=== PATIENT | male | born 1970 | race Two or more races ===

== ENCOUNTER 2016-03-22 05:20 | Inpatient (IN) | payer OTHER ==
[~2016-03-22] VITALS: Ht 162.6 cm; Wt 103.7 kg
[2016-03-22] VITALS (35 sets, daily range): BP systolic 104–152; BP diastolic 56–101; PULSE 60–102; RESP 8–24; Ht 162.6 cm; Wt 103.7 kg
[2016-03-22] MEDS: PAIN COCKTAIL-CEFUROXIME IRR SCH ×14 (05:00→08:54)
[~2016-03-22 05:20] MED LIST: 3N1 COMMODE MC; ALLO100T PO; ASPI325T32 PO; ATOR20TA38 PO; BENA20TA48 PO; BUPIVACAINE LIPOSOME/PF 266 MG/20 ML VIAL INFIL SCH; CEFAZOLIN 2GM/50 ML (PMX) 50 ML X1 BEFORE INCISION IVPB ONE; CELECOXIB 400 MG PO X1 DOSE PO ONE; CPM MC; EXPAREL NOTE (BUPIVICAINE LIPOSOMAL) XX SCH; HYDR-3025 PO; METO25TA7 PO; PREGABALIN 300 MG PO X1 PO ONE; SOD CHLORIDE 0.9% IV ONE; SOD CHLORIDE 0.9% IVPB SCH; TRANEXAMIC ACID IV ONE; TRANEXAMIC ACID IVPB SCH; WALK1EAC23 MC; oxyCODONE (CR) 10 MG TAB [oxyCONTIN] X1 DOSE PO ONE; traMADOL 50 MG TAB X 1 DOSE PO ONE
[2016-03-22] MEDS ORDERED: METO-448 PO (06:19)
[2016-03-22] MEDS ORDERED: BACITRACIN 50000 UNITS INJ ONE (06:34)
[2016-03-22] MEDS ORDERED: FENTAnyl 50 MCG/ML VIAL ONE (06:50)
[2016-03-22] MEDS ORDERED: DEXAMETHASONE 4 MG/ML 1 ML INJ ONE (06:52)
[2016-03-22] MEDS ORDERED: SODIUM CL BACTERIOSTATIC 30 ML INJ ONE (06:52)
[2016-03-22] MEDS ORDERED: VANCOMYCIN 1 GM INJ ONE (06:53)
[2016-03-22] MEDS ORDERED: POLYMYXIN B 500000 UNIT INJ ONE (06:53)
[2016-03-22] MEDS ORDERED: PROPOFOL 100 ML ONE (06:54)
[2016-03-22] MEDS ORDERED: MIDAZOLAM 1 MG/ML 2 ML INJ ONE (06:59)
[2016-03-22] MEDS ORDERED: DIPHENHYDRAMINE 50 MG INJ IV PRN ×2 (08:30)
[2016-03-22] MEDS ORDERED: LABETALOL HCL 20MG INJ IV PRN (08:30)
[2016-03-22] MEDS ORDERED: MEPERIDINE 25 MG INJ IV PRN (08:30)
[2016-03-22] MEDS ORDERED: HYDROmorphONE (0.2 MG/ML) 10ML SYG IV PRN ×3 (08:30)
[2016-03-22] MEDS ORDERED: HYDROmorphONE 1 MG/ML SYG IV PRN ×3 (08:30→10:30)
[2016-03-22] MEDS ORDERED: METOCLOPRAMIDE 10 MG INJ IV PRN (08:30)
[2016-03-22] MEDS ORDERED: NALOXONE (0.4 MG/ML) INJ IV PRN (08:30)
[2016-03-22] MEDS ORDERED: ONDANSETRON 4 MG INJ IV PRN ×3 (08:30→10:30)
[2016-03-22] MEDS ORDERED: FENTAnyl 50 MCG/ML VIAL IV PRN ×3 (08:30)
[2016-03-22] MEDS ORDERED: NEOSTIGMINE 3 MG/3 ML SYRINGE ONE (08:38)
[2016-03-22] MEDS ORDERED: PROPOFOL 20 ML ONE (08:38)
[2016-03-22] MEDS ORDERED: SUCCINYLCHOLINE CHLORIDE 100 MG/5 ML SYG IV ONE (08:38)
[2016-03-22] MEDS ORDERED: CEFAZOLIN 1 GM INJ ONE (08:39)
[2016-03-22] MEDS ORDERED: ONDANSETRON 4 MG INJ ONE (08:39)
[2016-03-22] MEDS ORDERED: LIDOCAINE 2% (SDV) 5 ML INJ ONE (08:39)
[2016-03-22] MEDS ORDERED: ROCURONIUM 50 MG INJ ONE (08:39)
[2016-03-22] MEDS ORDERED: METOCLOPRAMIDE 10 MG INJ ONE (08:39)
[2016-03-22] MEDS ORDERED: GLYCOPYRROLATE 1 MG INJ ONE (08:39)
[2016-03-22] MEDS: LACTATED RINGER'S 1,000 ML IV SCH ×5 (10:02→23:28)
--- NOTE | 2016-03-22 10:13 | PN ---
Date/Time of Note Date/Time of Note DATE: 03/22/16 TIME: 10:09 Assessment/Plan Lines/Catheters IV Catheter Type (from Nrsg): Peripheral IV Assessment/Plan Assessment/Plan Stable in PACU, s/p right TKA -cont abx -pain meds -ASA/SCDs -OOB with PT -monitor drain -check AM labs -d/c montero in AM XR of the right knee is pending at this time Subjective 24 Hr Interval Summary Doing well in PACU. Pain minimal. Moving all extremities Exam/Review of Systems Vital Signs Vitals Vital Signs Date Time Temp Pulse Resp B/P Pulse Ox O2 Delivery O2 Flow Rate FiO2 03/22/16 06:12 98.1 60 18 142/101 98 Room Air Exam Free Text/Dictation Dressing dry Incision clean, dry, and intact without redness or drainage Thigh soft 5/5 Quadriceps, Tibialis Anterior, EHL, Gastroc, Soleus, Peroneals Normal sensation Palpable DT/PT, CR <2 sec No distal edema ROSALINDA STEWART PA-C Mar 22, 2016 10:13
--- NOTE | 2016-03-22 10:14 | OPPN ---
Date/Time of Note Date/Time of Note DATE: 03/22/16 TIME: 10:10 Operative/Procedure Note Dictation # [id number] Pre-Operative Diagnosis Right Knee OA Post-Operative Diagnosis Same Procedure Right TKA Surgeon: KAM DIGGS MD Record Label Internship: ROSALINDA STEWART PA-C Anesthesiologist: JOHN HALL Findings Severe OA Blood Usage/Administration None Implants/Grafts Depuy Attune TKA Estimated blood loss: 50 - 100 ml's Drains Hemovac x 1 Specimens Bone and soft tissue Complications: None Anesthesia type: spinal KAM DIGGS MD Mar 22, 2016 10:14
[2016-03-22 10:25] LABS: HEMATOCRIT 44.8 % (42.0-52.0); HEMOGLOBIN 14.9 g/dl (14.0-18.0)
[2016-03-22] MEDS ORDERED: DIPHENHYDRAMINE 25 MG CAP PO PRN (10:30)
[2016-03-22] MEDS: KETOROLAC 15 MG INJ IV SCH ×2 (10:30→18:20)
[2016-03-22] MEDS ORDERED: oxyCODONE 5 MG TAB PO PRN ×2 (10:30)
[2016-03-22] MEDS ORDERED: MAGNESIUM HYDROXIDE 30ML CUP PO PRN (10:30)
[2016-03-22] MEDS ORDERED: NACL 0.9% 3 ML SYG IV SCH (10:30)
[2016-03-22] MEDS ORDERED: BISACODYL 10 MG SUPP PR PRN (10:30)
[2016-03-22] MEDS ORDERED: NA PHOSPHATE/BIPHOS 133 ML ENEMA PR PRN (10:30)
[2016-03-22] MEDS ORDERED: ASPIRIN (EC) 325 MG TAB PO ONE (10:30)
[2016-03-22 10:45] LABS: CALCIUM 8.3 mg/dl (8.4-10.2); CREATININE 0.91 mg/dl (0.61-1.24); POTASSIUM 4.4 mmol/L (3.5-5.1)
[2016-03-22] MEDS: CEFAZOLIN 2 GM/50 ML (PMX) 50 ML IVPB SCH ×2 (10:53→18:19)
--- NOTE | 2016-03-22 11:20 | OPR ---
DATE OF OPERATION: 03/22/2016 PREOPERATIVE DIAGNOSIS: Right knee osteoarthritis. POSTOPERATIVE DIAGNOSIS: Right knee osteoarthritis. OPERATION PERFORMED: Right total knee arthroplasty. SURGEON: Kam Brandt MD MOLD CAPPER: CLAUDETTE Guzman COMPONENTS USED: DePuy Attune size 6 femoral component, size 7 tibial baseplate, 6 mm polyethylene insert, 38 patellar button. ANESTHESIA: Spinal plus general endotracheal intubation plus periarticular injection. ANESTHESIOLOGIST: Dr. Alegria. TOURNIQUET TIME: 67 minutes. ESTIMATED BLOOD LOSS: 50 mL. INTRAVENOUS FLUIDS: 1500 mL crystalloid. SPECIMENS: Bone and soft tissue. DRAINS: Hemovac x1. COMPLICATIONS: None. DISPOSITION: Patient tolerated the procedure well and was taken to the recovery room in stable cond ition. INDICATIONS: The patient is a 45-year-old gentleman who has had progressive worsening pain in the r ight knee with radiographic evidence of severe osteoarthritis. He has failed nonsurgical means of t reatment to control his pain including activity modifications, pain medications, intra-articular inj ections and ambulatory assist devices. Despite these measures, he has had worsening pain. I felt the patient would benefit from a total knee arthroplasty. The risks, benefits, and alternatives of the procedure were explained in detail to the patient. I ex plained the risks of the surgery to include but not be limited to, bleeding and possible need for bl ood transfusion; infection; pain; stiffness; neurovascular injury with possible numbness, weakness, and/or paralysis anywhere from the knee down to the toes; fracture; instability; dislocation; wear a nd/or loosening of the prosthesis and possible need for future revision; blood clots; pulmonary embo lism; and anesthetic complications such as heart attack, stroke, GI bleed, pneumonia, and/or . Ample time was allowed for the patient to ask questions, all of which were addressed and answered. T he patient understood the risks involved and wished to proceed. Informed consent was signed prior to the procedure. PROCEDURE: The patient's right knee was initialed with a marking pen in the preoperative area to id entify the correct operative site. The patient was brought to the operating room and transferred fro [facility] to the operating table where a spinal anesthetic was administered. The patient was then anesthetized and intubated. A Reyes catheter was placed. A timeout was performed to confir m that the right leg was the correct operative site. The patient was given 2 g of Ancef within one h our prior to the procedure. A tourniquet was placed on the operative proximal thigh. The operative k nee and lower extremity were prepped and draped in the usual sterile fashion. The operative lower ex tremity was elevated and exsanguinated with an Esmarch tourniquet. The proximal thigh tourniquet was inflated to 300 mmHg. The knee was flexed. A midline incision was made and carried down through the subcutaneous tissue an d fat with sharp dissection. Limited medial and lateral flaps were raised. A : median parapatellar arthrotomy approach was performed. Synovial fluid was normal in color and consistency. The patella w as everted and the knee flexed. There were severe tricompartmental osteoarthritic changes noted. A m edial release was performed at the joint line to the midcoronal plane. The ACL and PCL and remnants of the menisci were excised. The stepped drill was used to open up the femoral canal which was irrig ated and sucked dry. The intramedullary guide ivory was passed up the femur, and the distal cutting bl ock was pinned into place for a 6 degree valgus cut, taking 10 mm of bone off distally. The oscillat ing saw was used to make the cut. The tibia was subluxed anteriorly. The tibial cutoff jig was placed over the center of the talus dis tally and over the junction of the medial and middle third of the tibial tubercle proximally. The gu rosario was pinned into place and the oscillating saw was used to make the cut. The tibia was sized. The extension gap was checked and accommodated a 6 mm spacer block with the knee in full extension. The re was no varus or valgus instability. At this point, the femur was sized with the posterior referencing guide. Two holes were drilled in 3 degrees of external rotation. The two holes were in line with the transepicondylar axis, perpendicu lar to Max's line, and in line with the tibial cutoff jig brought up with the knee flexed 90 d egrees and tensed with 2 lamina spreaders, suggesting the femoral rotation was correct. The four-in- one cutting block was pinned into place. The anterior and posterior cuts and chamfer cuts were made with the oscillating saw. The flexion gap was checked and accommodated the 6 mm spacer block at 90 d egrees. There was no varus or valgus instability, suggesting the flexion and extension gaps were now equal. The central box was cut out on the femur. The tibia was drilled and punched in proper rotation. Tria l components were placed into position with a trial insert. The patella was cut from 24 mm down to 1 4 mm and sized. Three holes were drilled and the trial button placed in position. With all the trial s now in place, the knee was taken through range of motion and came to full extension as evidenced b y the fact that with the foot on my abdomen and axial loading, there was no tendency for the knee to flex. The knee was able to be flexed to 125 degrees with good patellar tracking with no lateral til t or subluxation. At this point, I was satisfied with the overall range of motion, stability, and pa tellar tracking. The trials were removed. The real components were opened. Two bags of cement were mixed, one with an d one without premixed antibiotic. The knee was irrigated with antibiotic saline and sucked dry. Onc e the cement was in a doughy stage, the real components were cemented into place. The knee was held in full extension, and the patellar component was held with a patellar clamp. All excess cement was removed with curettes. As the cement was hardening, the synovial/capsular layer was infiltrated with a mixture of 150 mg of 0.5% Bupivacaine, 8 mg of Duramorph, 300 mcg of epinephrine, 30 mg of [place] l, 100 mcg of clonidine, 750 mg of cefuroxime and 86 mL of normal saline, followed by an injection o f 266 mg of liposomal Bupivacaine. A Hemovac drain was placed in the deep portion of the wound and brought out the anterolateral thigh. Once the cement was completely hardened, the trial liner was removed, and the real insert was opene d. The tourniquet was let down, and there was good hemostasis. The knee was then irrigated with a mi xture of betadine/saline and then antibiotic saline with pulsatile lavage. The real insert was impac nasir into the tibia and reduced onto to the femur. The arthrotomy was closed with a few interrupted #1 Ethibond in a [id number] fashion, and then closed in a watertight fashion with a running #2 Stratafix suture. Knee flexion was checked against gravity and came to 125 degrees. The subcutaneous layer was irrigated and closed with 2-0 Statafix, and then 3-0 Statafix and then Prineo Dermabond on the skin. The wound was covered with an occlusive dressing, and secured with cast padding and a bias dressing. The drain was secured with 3-0 nylon. The sponge and needle counts were correct at the end of the case. The patient was then awakened, ext ubated, and taken to the recovery room in stable condition. Dictated By: KAM MARIANO/NTS Conf#: [id number] DID#: [id number]
--- NOTE | 2016-03-22 11:28 | RADRPT ---
PROCEDURE: XR Knee. CLINICAL INDICATION: Postoperative total knee replacement. TECHNIQUE: Three views of the right knee are available for review. COMPARISON: 03/06/2016. FINDINGS: Since the prior examination, and the patient has undergone a posterior stabilized total knee replace ment. There is an overall appropriate appearance. The prosthesis is in good position and alignment . No bone destructive or erosive changes are seen. No evidence for fracture. There are postoperat miguel changes of soft tissue swelling and air which are expected findings. There is a drain in place. IMPRESSION: 1. Appropriate appearance to posterior stabilized total knee replacement. 2. No acute fracture or dislocation is seen. RPTAT: XX .Naseem Bustamante MD, Date Time Electronically viewed and signed by .Naseem Bustamante MD, on 03/22/2016 11:28 .T/
[2016-03-22] MEDS: traMADol 50 MG TAB PO SCH ×3 (12:53→23:29)
[2016-03-22] MEDS: ACETAMINOPHEN 1000MG/100ML IV 100 ML IVPB SCH ×3 (12:54→23:28)
[2016-03-22 14:06] LABS: ADD UMIC YES; URINE BILIRUBIN (Dip) NEGATIVE (NEGATIVE); URINE BLOOD (Dip) TRACE (NEGATIVE); URINE COLOR LT. YELLOW (YELLOW); URINE GLUCOSE (Dip) NEGATIVE (NEGATIVE); URINE KETONES (Dip) NEGATIVE (NEGATIVE); URINE LEUKOCYTE ESTERASE (Dip) NEGATIVE (NEGATIVE); URINE NITRITE (Dip) NEGATIVE (NEGATIVE); URINE TOTAL PROTEIN (Dip) NEGATIVE (NEGATIVE); URINE UROBILINOGEN (Dip) 0.2 E.U./dL (0.1-1.0)
[2016-03-22 14:15] LABS: URINE RBCS 0-2 /HPF (0)
--- NOTE | 2016-03-22 14:21 | CONS ---
DATE OF ADMISSION: 03/22/2016 DATE OF CONSULTATION: 03/22/2016 PHYSICIAN REQUESTING CONSULT: Dr. Kam Diggs. REASON FOR CONSULTATION: Medical management postoperatively. HISTORY OF PRESENT ILLNESS: This is a very pleasant 45-year-old gentleman with past medical history of hypertension, diverticulitis, right knee osteoarthritis, who has been having progressively worse jasmin pain in his right knee with radiographic evidence of severe osteoarthritis. He has failed nons urgical means of treatment to control his pain including activity modification, pain medication, int raocular injection ____ assist device. Despite these measures, he has been having worsening of the pain. The patient was seen and evaluated by orthopedic surgeon and after discussing the mode of oneil atment he agreed to proceed with surgical intervention. Therefore, today 03/22/2016 after signing c onsent, the patient was taken to OR for right total knee arthroplasty, which he tolerated the proced ure well and was taken to recovery room. Medical team was consulted. Patient at this time denies a ny chest pain, shortness of breath, nausea, vomiting, diarrhea. No headache, dizziness, lightheaded ness. No change in visual acuity, diplopia, photophobia. No abdominal pain. No dysuria, hematuria , urgency, incontinence or any other discomfort. At this time, the patient does not have any compla int of having any pain. PAST MEDICAL AND SURGICAL HISTORY: 1. Hypertension. 2. Diverticulitis SURGICAL HISTORY: Colon resection. MEDICATIONS: 1. [place]. 2. Allopurinol. 3. Aspirin. 4. Lipitor. 5. Benazepril 6. Metoprolol. ALLERGIES: NO KNOWN DRUG ALLERGIES. FAMILY HISTORY: Mother had COPD. Father had coronary artery disease. SOCIAL HISTORY: Negative x3 for smoking, alcohol, illicit drugs. REVIEW OF SYSTEMS: As above per HPI, otherwise 12 review of systems were found negative. PHYSICAL EXAMINATION: VITAL SIGNS: Temperature 98.7, pulse 74, respiration 18, blood pressure 110/60, oxygen 99% on room air. GENERAL APPEARANCE: The patient is lying in bed comfortably without any distress. He is awake, raven rt, oriented. He is able to answer my questions properly. Body habitus moderately overweight, a BM I of 39.2. EYES AND ENT: Conjunctivae and lids are normal. Pupils are normal. Extraocular normal. Hearing g rossly normal. Pupils are normal. Oral mucosa is moist. NECK: Supple. Trachea is midline. No lymphadenopathy. RESPIRATORY: Effort is normal. Clear to auscultation bilaterally. CARDIOVASCULAR: Normal S1, S2. Regular rhythm and rate. No murmur, no bruits, no edema. Peripher al pulses, radial pulses palpable. Cap refill is normal. CHEST: Normal expansion of thorax during inspiration. GASTROINTESTINAL: Abdomen is soft, nontender, not distended. Bowel sounds present. No guarding, n o rebound. There is a scar in the mid abdominal region. This is from his prior history, which is w ell healed. GENITOURINARY: Deferred. MUSCULOSKELETAL: Upper extremity within normal limits. Right lower extremity, the knee is wrapped in Odilon bandage. There is a drain in place which is intact. Left lower extremity within normal limi ts. Full range of motion. NEUROLOGIC: Cranial nerves II through XII are grossly intact. PSYCHIATRIC: Normal judgment and insight. Alert and oriented x3. Mood and affect is normal. LABORATORY WORK AND IMAGING: Hemoglobin 14.9, hematocrit 44.8, platelets 143, potassium 4.4, chlori de 107, bicarbonate 24, BUN 10, creatinine 0.91, glucose 151, calcium 8.3. ASSESSMENT AND PLAN: 1. Right knee osteoarthritis status post right total knee arthroplasty. Continue post-surgical car e. The patient has been placed on aspirin for deep venous thrombosis prophylaxis. ____orthopedic s urgery recommendation. Continue pain medication, physical therapy as per his recommendation. 2. Essential hypertension, well controlled on benazepril and metoprolol. 3. Dyslipidemia. Continue statin. 4. For deep venous thrombosis prophylaxis, on aspirin. 5. For gastrointestinal prophylaxis, on proton pump inhibitor. 6. We will continue to monitor patient closely. Further recommendations, management and treatment as per clinical course. Total amount of time spent for evaluation of patient and consultation note was 40 minutes. Dictated By: KAE FANG MD PN/NTS Conf#: [id number] DID#: [id number] CC: KAM DIGGS MD;*EndCC*
[2016-03-22] MEDS: PANTOPRAZOLE (EC) 40 MG TAB PO SCH (18:20)
[2016-03-22] MEDS: METOPROLOL 25 MG TAB PO SCH (20:15)
[2016-03-22] MEDS: DOCUSATE SODIUM 100 MG CAP PO SCH (20:15)
[2016-03-22] MEDS: ATORVASTATIN 20 MG TAB PO SCH (20:15)
[2016-03-22] MEDS: PREGABALIN 25 MG CAP PO SCH (20:15)
[2016-03-23] MEDS: LACTATED RINGER'S 1,000 ML IV SCH ×5 (02:02→23:00)
[2016-03-23] MEDS: KETOROLAC 15 MG INJ IV SCH (02:32)
[2016-03-23] MEDS: CEFAZOLIN 2 GM/50 ML (PMX) 50 ML IVPB SCH (02:32)
[2016-03-23] MEDS: traMADol 50 MG TAB PO SCH ×3 (05:06→18:21)
[2016-03-23] MEDS: PANTOPRAZOLE (EC) 40 MG TAB PO SCH ×2 (05:06→18:00)
[2016-03-23] MEDS: ACETAMINOPHEN 1000MG/100ML IV 100 ML IVPB SCH (05:06)
[2016-03-23 05:17] VITALS: BP 101/57; PULSE 55; RESP 18
[2016-03-23 05:39] LABS: POTASSIUM 4.5 mmol/L (3.5-5.1)
[2016-03-23 05:42] LABS: CALCIUM 8.1 mg/dl (8.4-10.2); CREATININE 0.87 mg/dl (0.61-1.24)
--- NOTE | 2016-03-23 07:16 | PDOCDIS ---
Discharge Instructions DIAGNOSIS Discharge Diagnosis: s/p right TKA CONDITION Patient Condition: Good HOME CARE INSTRUCTIONS: Diet Instructions: Regular ACTIVITY: Activity Restrictions: No Restrictions Slowly Increase Activity Rest between Activity Avoid heavy lifting Do not operate Machinery Do not operate Power Tool Avoid Heavy Housework Bathing Restrictions: Shower FOLLOW UP/APPOINTMENTS Appointments follow up with Dr. Brandt in the office on 04/02/16 OTHER ORDERS: Other Orders: S/P TKA Physical Therapy: Three times per week at home x 2 weeks Daily in Rehab/SNF WB STATUS: WBAT 1. Strengthening exercises for both upper and un-operated lower extremities. 2. Gait training with front wheeled walker 3. Active range of motion exercises to operative knee. 4. When not working on knee range of motion exercises, distal towel roll under operative ankle/distal calf to promote full extension. 5. DO NOT PUT ANYTHING BEHIND OPERATIVE KNEE!!! 6. Quadriceps and hamstring strengthening. 7. May switch to cane in contra lateral hand 6 weeks after surgery. 8. Physical Therapy can open case if nursing is not available. 9. Use Ice Machine as instructed from date of surgery while at rest 3X/day. 10. Patient requires mobile SCDs to reduce risk of developing DVT following TKA. Patient will use the mobile SCDs for 30 days postoperatively. Bathing assistance by home health aide twice weekly if Medicare patient. Occupational Therapy: Evaluation for assistive devices and ADL training. Wound Care: Keep incision dry & covered with Tegaderm until first visit with Dr. Brandt Anticoagulation Orders: Enteric Coated Aspirin 325 mg po bid x 6 weeks from date of surgery Follow-up:Call for an appointment with Dr. Brandt in 1 week after discharged from hospital at DME Orders: FWW, 3-in-1 Commode, Polar ice machine, Mobile SCDs ROSALINDA STEWART PA-C Mar 23, 2016 07:16
[2016-03-23] MEDS ORDERED: PANT40TA4 PO (07:18)
[2016-03-23] MEDS ORDERED: HYDR-905 PO (07:18)
[2016-03-23] MEDS ORDERED: ULT50 PO (07:18)
[2016-03-23 07:22] VITALS: BP 106/51; RESP 20
[2016-03-23 07:52] LABS: HEMATOCRIT 38.2 % (42.0-52.0); HEMOGLOBIN 12.6 g/dl (14.0-18.0)
--- NOTE | 2016-03-23 08:52 | PN ---
Date/Time of Note Date/Time of Note DATE: 03/23/16 TIME: 08:50 Assessment/Plan Lines/Catheters IV Catheter Type (from Nrsg): Peripheral IV Reyes in Place (from Nrsg): Yes Assessment/Plan Assessment/Plan Stable POD #1 s/p right TKA -d/c abx -ASA/SCDs -pain meds -drain removed today -OOB with PT -check AM labs -d/c planning. Possible d/c home tomorrow Subjective 24 Hr Interval Summary Doing well. No acute overnight events. Pain minimal. Ambulated with PT yesterday. VSS, afebrile. Exam/Review of Systems Vital Signs Vitals Vital Signs Date Time Temp Pulse Resp B/P Pulse Ox O2 Delivery O2 Flow Rate FiO2 03/23/16 07:22 98.3 51 20 106/51 99 03/23/16 05:17 Nasal Cannula 1.0 Intake and Output 03/22/16 03/22/16 03/23/16 15:00 23:00 07:00 Intake Total 1700 ml 1650 ml 1780 ml Output Total 370 ml 1190 ml 1810 ml Balance 1330 ml 460 ml -30 ml Exam Free Text/Dictation Hemovac: 320cc Dressing dry Incision clean, dry, and intact without redness or drainage Thigh soft 5/5 Quadriceps, Tibialis Anterior, EHL, Gastroc, Soleus, Peroneals Normal sensation Palpable DT/PT, CR <2 sec No distal edema Results Result Diagram: 03/23/16 0426 03/23/16 0426 ROSALINDA STEWART PA-C Mar 23, 2016 08:52
[2016-03-23] MEDS: ASPIRIN (EC) 325 MG TAB PO SCH ×2 (08:57→20:23)
[2016-03-23] MEDS: DOCUSATE SODIUM 100 MG CAP PO SCH ×2 (08:57→20:23)
[2016-03-23] MEDS: PREGABALIN 25 MG CAP PO SCH ×2 (08:57→20:22)
[2016-03-23] MEDS: CELECOXIB 200 MG CAP PO SCH (08:58)
[2016-03-23] MEDS: METOPROLOL 25 MG TAB PO SCH ×2 (08:58→20:25)
[2016-03-23] MEDS: BENAZEPRIL 20 MG TAB PO SCH (08:59)
[2016-03-23] MEDS: ALLOPURINOL 100 MG TAB PO SCH (08:59)
[2016-03-23 09:59] LABS: ADD UMIC YES; URINE BILIRUBIN (Dip) NEGATIVE (NEGATIVE); URINE BLOOD (Dip) 1+ (NEGATIVE); URINE COLOR LT. YELLOW (YELLOW); URINE GLUCOSE (Dip) NEGATIVE (NEGATIVE); URINE KETONES (Dip) NEGATIVE (NEGATIVE); URINE LEUKOCYTE ESTERASE (Dip) NEGATIVE (NEGATIVE); URINE NITRITE (Dip) NEGATIVE (NEGATIVE); URINE TOTAL PROTEIN (Dip) NEGATIVE (NEGATIVE); URINE UROBILINOGEN (Dip) 0.2 E.U./dL (0.1-1.0)
--- NOTE | 2016-03-23 11:47 | PN ---
Date/Time of Note Date/Time of Note DATE: 03/23/16 TIME: 11:45 Assessment/Plan VTE Prophylaxis VTE Prophylaxis Intervention: other Lines/Catheters IV [facility] Saline Lock Urinary Cath still in place: No Assessment/Plan Chief Complaint/Hosp Course ASSESSMENT AND PLAN: 1. Right knee osteoarthritis status post right total knee arthroplasty. Postop day #1 , continue post-surgical care. . Continue pain medication, physical therapy as per his recommendation. 2. Essential hypertension, well controlled on benazepril and metoprolol. 3. Dyslipidemia. Continue statin. 4. Anemia. Likely postop versus dilutional, stable 5. For deep venous thrombosis prophylaxis, on aspirin as per orthopedic surgery recommendations. 6. For gastrointestinal prophylaxis, on proton pump inhibitor. We will continue to monitor patient closely. Further recommendations, management and treatment as per clinical course. Problems: Subjective 24 Hr Interval Summary Free Text/Dictation Patient denies of any chest pain or shortness of breath Ambulate with minimal assist Denies of having any knee pain Exam/Review of Systems Vital Signs Vitals Vital Signs Date Time Temp Pulse Resp B/P Pulse Ox O2 Delivery O2 Flow Rate FiO2 03/23/16 07:22 98.3 51 20 106/51 99 03/23/16 05:17 Nasal Cannula 1.0 Intake and Output 03/22/16 03/22/16 03/23/16 15:00 23:00 07:00 Intake Total 1700 ml 1650 ml 1780 ml Output Total 370 ml 1190 ml 1810 ml Balance 1330 ml 460 ml -30 ml Exam General: The patient is well-developed, Not in acute distress. HEENT: Atraumatic, normocephalic. The pupils are equal and round . Neck: Supple with full range of motion. Chest: Normal expansion of the thorax during inspiration Lungs: Clear to auscultation bilaterally Heart: Normal S1-S2, Regular rhythm and rate. Abdomen: Soft , nontender, nondistended , bowel sounds are present. Extremities: Right knee is wrapped in dry dressing, drain is removed, no edema no cyanosis Neurologic: Normal mental status,The patient is awake, alert and oriented . Results Result Diagram: 03/23/16 0426 03/23/16 0426 Results 24 hrs Laboratory Tests Test 03/23/16 04:26 03/23/16 06:30 Anion Gap 18 H Blood Urea Nitrogen 13 Calcium Level 8.1 L Carbon Dioxide Level 23 Chloride Level 103 Creatinine 0.87 Glucose Level 146 Hematocrit 38.2 L Hemoglobin 12.6 L Potassium Level 4.5 Sodium Level 139 Urine Bilirubin NEGATIVE Urine Clarity CLEAR Urine Color LT. YELLOW Urine Glucose NEGATIVE Urine Hemoglobin 1+ H Urine Ketones NEGATIVE Urine Leukocyte Esterase NEGATIVE Urine Microscopic RBC 2-5 Urine Microscopic WBC NONE SEEN Urine Nitrite NEGATIVE Urine Specific [place] 1.015 Urine Total Protein NEGATIVE Urine Urobilinogen 0.2 E.U./dL Urine pH 6.0 Medications Medications Current Medications Lactated Ringer's (Lr) 1,000 ml @ 100 mls/hr Q10H IV Last administered on 23:28; Admin Dose 100 MLS/HR; Start 03/22/16 at 05:00 Miscellaneous Information 1 ea NOTE XX ; Start 03/22/16 at 05:00; Stop 03/26/16 at 04:59 Allopurinol (Zyloprim) 100 mg DAILY PO Last administered on 03/23/16 08:59; Admin Dose 100 MG; Start 03/23/16 at 09:00 Atorvastatin Calcium (Lipitor) 20 mg QHS PO Last administered on 03/22/16 20:15 ; Admin Dose 20 MG; Start 03/22/16 at 21:00 Benazepril HCl (Lotensin) 20 mg DAILY PO ; Start 03/23/16 at 09:00 Metoprolol Tartrate 25 mg 25 mg BID PO Last administered on 03/22/16 20:15; Admin Dose 25 MG; Start 03/22/16 at 21:00 Lactated Ringer's (Lr) 1,000 ml @ 125 mls/hr Q8H IV Last administered on 18:21; Admin Dose 125 MLS/HR; Start 03/22/16 at 10:02 Celecoxib 200 mg 200 mg DAILY PO Last administered on 03/23/16 08:58; Admin Dose 200 MG; Start 03/23/16 at 09:00 Acetaminophen (Ofirmev 1000mg/ 100ml Iv) 100 ml @ 400 mls/hr Q6 IVPB Last administered on 03/23/16 05:06; Admin Dose 400 MLS/HR; Start 03/22/16 at 12:00; Stop 03/23/16 at 11:59 Tramadol HCl (Ultram) 50 mg Q6 PO Last administered on 03/23/16 05:06; Admin Dose 50 MG; Start 03/22/16 at 12:00; Stop 03/25/16 at 11:59 Oxycodone HCl (Roxicodone) 5 mg Q4H PRN PO PAIN LEVEL 1-3; Start 03/22/16 at 10: 30 Oxycodone HCl (Roxicodone) 10 mg Q4H PRN PO PAIN LEVEL 4-7; Start 03/22/16 at 10 :30 Hydromorphone HCl (Dilaudid) 1 mg Q3H PRN IV PAIN LEVEL 8-10; Start 03/22/16 at 10:30 Ondansetron HCl (Zofran Inj) 4 mg Q6H PRN IV NAUSEA AND/OR VOMITING; Start 03/22 at 10:30 Bisacodyl (Dulcolax Supp) 10 mg Q12H PRN [place] CONSTIPATION; Start 03/22/16 at 10: 30 Magnesium Hydroxide (Milk Of Mag) 30 ml BID PRN PO CONSTIPATION; Start 03/22/16 at 10:30 Sodium Biphosphate/ Sodium Phosphate (Fleet Enema) 133 ml DAILY PRN [place] CONSTIPATION; Start 03/22/16 at 10:30 Docusate Sodium (Colace) 100 mg BID PO Last administered on 03/23/16 08:57; Admin Dose 100 MG; Start 03/22/16 at 21:00 Diphenhydramine HCl (Benadryl) 25 mg Q6H PRN PO PRURITUS; Start 03/22/16 at 10: 30 Aspirin (Ecotrin) 325 mg BID PO Last administered on 03/23/16 08:57; Admin Dose 325 MG; Start 03/23/16 at 09:00 Pantoprazole (Protonix Tab) 40 mg BID@06,18 PO Last administered on 03/23/16 05 :06; Admin Dose 40 MG; Start 03/22/16 at 18:00 Pregabalin (Lyrica) 50 mg BID PO Last administered on 03/23/16 08:57; Admin Dose 50 MG; Start 03/22/16 at 21:00 KAE FANG MD Mar 23, 2016 11:47
[2016-03-23 19:37] VITALS: BP 139/70; RESP 18
[2016-03-23] MEDS: ATORVASTATIN 20 MG TAB PO SCH (20:23)
[2016-03-24] MEDS: traMADol 50 MG TAB PO SCH ×3 (00:23→12:12)
[2016-03-24] MEDS: LACTATED RINGER'S 1,000 ML IV SCH ×3 (02:02→10:02)
[2016-03-24 06:08] LABS: HEMATOCRIT 36.1 % (42.0-52.0); HEMOGLOBIN 11.9 g/dl (14.0-18.0)
[2016-03-24 06:19] LABS: POTASSIUM 4.3 mmol/L (3.5-5.1)
[2016-03-24 06:21] LABS: CREATININE 0.81 mg/dl (0.61-1.24)
[2016-03-24] MEDS: PANTOPRAZOLE (EC) 40 MG TAB PO SCH (06:34)
[2016-03-24 07:27] VITALS: BP 124/85; RESP 17
[2016-03-24] MEDS: BENAZEPRIL 20 MG TAB PO SCH (09:02)
[2016-03-24] MEDS: ASPIRIN (EC) 325 MG TAB PO SCH (09:02)
[2016-03-24] MEDS: ALLOPURINOL 100 MG TAB PO SCH (09:02)
[2016-03-24] MEDS: CELECOXIB 200 MG CAP PO SCH (09:02)
[2016-03-24] MEDS: PREGABALIN 25 MG CAP PO SCH (09:02)
[2016-03-24] MEDS: METOPROLOL 25 MG TAB PO SCH (09:03)
[2016-03-24] MEDS: DOCUSATE SODIUM 100 MG CAP PO SCH (09:03)
--- NOTE | 2016-03-24 10:25 | PN ---
Date/Time of Note Date/Time of Note DATE: 03/24/16 TIME: 10:18 Assessment/Plan VTE Prophylaxis VTE Prophylaxis Intervention: other Lines/Catheters IV [facility]from [facility] Saline Lock Urinary Cath still in place: No Assessment/Plan Chief Complaint/Hosp Course ASSESSMENT AND PLAN: 1. Right knee osteoarthritis status post right total knee arthroplasty. Postop day #2 , continue post-surgical care. . Continue pain medication, continue physical therapy as outpatient 2. Essential hypertension, well controlled on benazepril and metoprolol. 3. Dyslipidemia. Continue statin. 4. Anemia. Likely postop versus dilutional, stable 5. For deep venous thrombosis prophylaxis, on aspirin as per orthopedic surgery recommendations. 6. For gastrointestinal prophylaxis, on proton pump inhibitor. Patient is stable as medical standpoint to be discharged home Problems: Subjective 24 Hr Interval Summary Free Text/Dictation Patient denies of any chest pain or shortness of breath Tolerating oral intake Minimal pain and discomfort in right knee during ambulation with physical therapy Exam/Review of Systems Vital Signs Vitals Vital Signs Date Time Temp Pulse Resp B/P Pulse Ox O2 Delivery O2 Flow Rate FiO2 03/24/16 07:27 98.6 62 17 124/85 98 03/23/16 05:17 Nasal Cannula 1.0 Intake and Output 03/23/16 03/23/16 03/24/16 15:00 23:00 07:00 Intake Total 1100 ml 1400 ml Output Total 1300 ml 1000 ml Balance -200 ml 400 ml Exam General: The patient is well-developed, Not in acute distress. HEENT: Atraumatic, normocephalic. The pupils are equal and round . Neck: Supple with full range of motion. Chest: Normal expansion of the thorax during inspiration Lungs: Clear to auscultation bilaterally Heart: Normal S1-S2, Regular rhythm and rate. Abdomen: Soft , nontender, nondistended , bowel sounds are present. Extremities: Normal to inspection, no edema no cyanosis, right knee in dry dressing . Dorsal pedal pulses are palpable Neurologic: Normal mental status,The patient is awake, alert and oriented . Results Result Diagram: 03/24/16 0422 03/24/16421 Results 24 hrs Laboratory Tests Test 03/24/16 04:22 Anion Gap 16 Blood Urea Nitrogen 14 Calcium Level 8.0 L Carbon Dioxide Level 28 Chloride Level 102 Creatinine 0.81 Glucose Level 101 # Hematocrit 36.1 L Hemoglobin 11.9 L Potassium Level 4.3 Sodium Level 142 Medications Medications Current Medications Lactated Ringer's (Lr) 1,000 ml @ 100 mls/hr Q10H IV Last administered on 23:28; Admin Dose 100 MLS/HR; Start 03/22/16 at 05:00 Miscellaneous Information 1 ea NOTE XX ; Start 03/22/16 at 05:00; Stop 03/26/16 at 04:59 Allopurinol (Zyloprim) 100 mg DAILY PO Last administered on 03/24/16 09:02; Admin Dose 100 MG; Start 03/23/16 at 09:00 Atorvastatin Calcium (Lipitor) 20 mg QHS PO Last administered on 03/23/16 20:23 ; Admin Dose 20 MG; Start 03/22/16 at 21:00 Benazepril HCl (Lotensin) 20 mg DAILY PO Last administered on 03/24/16 09:02; Admin Dose 20 MG; Start 03/23/16 at 09:00 Metoprolol Tartrate 25 mg 25 mg BID PO Last administered on 03/24/16 09:03; Admin Dose 25 MG; Start 03/22/16 at 21:00 Lactated Ringer's (Lr) 1,000 ml @ 125 mls/hr Q8H IV Last administered on 18:21; Admin Dose 125 MLS/HR; Start 03/22/16 at 10:02 Celecoxib (Celebrex) 200 mg DAILY PO Last administered on 03/24/16 09:02; Admin Dose 200 MG; Start 03/23/16 at 09:00 Tramadol HCl (Ultram) 50 mg Q6 PO Last administered on 03/24/16 06:32; Admin Dose 50 MG; Start 03/22/16 at 12:00; Stop 03/25/16 at 11:59 Oxycodone HCl (Roxicodone) 5 mg Q4H PRN PO PAIN LEVEL 1-3; Start 03/22/16 at 10: 30 Oxycodone HCl (Roxicodone) 10 mg Q4H PRN PO PAIN LEVEL 4-7; Start 03/22/16 at 10 :30 Hydromorphone HCl (Dilaudid) 1 mg Q3H PRN IV PAIN LEVEL 8-10; Start 03/22/16 at 10:30 Ondansetron HCl (Zofran Inj) 4 mg Q6H PRN IV NAUSEA AND/OR VOMITING; Start 03/22 at 10:30 Bisacodyl (Dulcolax Supp) 10 mg Q12H PRN AL CONSTIPATION; Start 03/22/16 at 10: 30 Magnesium Hydroxide (Milk Of Mag) 30 ml BID PRN PO CONSTIPATION; Start 03/22/16 at 10:30 Sodium Biphosphate/ Sodium Phosphate (Fleet Enema) 133 ml DAILY PRN AL CONSTIPATION; Start 03/22/16 at 10:30 Docusate Sodium (Colace) 100 mg BID PO Last administered on 03/24/16 09:03; Admin Dose 100 MG; Start 03/22/16 at 21:00 Diphenhydramine HCl (Benadryl) 25 mg Q6H PRN PO PRURITUS; Start 03/22/16 at 10: 30 Aspirin (Ecotrin) 325 mg BID PO Last administered on 03/24/16 09:02; Admin Dose 325 MG; Start 03/23/16 at 09:00 Pantoprazole (Protonix Tab) 40 mg BID@06,18 PO Last administered on 03/24/16 06 :34; Admin Dose 40 MG; Start 03/22/16 at 18:00 Pregabalin (Lyrica) 50 mg BID PO Last administered on 03/24/16 09:02; Admin Dose 50 MG; Start 03/22/16 at 21:00 KAE FANG MD Mar 24, 2016 10:25
--- NOTE | 2016-03-24 11:03 | PN ---
Date/Time of Note Date/Time of Note DATE: 03/24/16 TIME: 10:56 Assessment/Plan Lines/Catheters IV Catheter Type (from Nrsg): Saline Lock Reyes in Place (from Nrsg): No Assessment/Plan Assessment/Plan POD # 2. Stable. -D/C to home -Pain meds -Home PT -E.C. ASA 325 mg po bid plus home bilateral SCDs -F/u with me in 1 week on 04/02/16 Subjective 24 Hr Interval Summary Doing well. Minimal pain. Walking well and did stairs. Wants to go home. Exam/Review of Systems Vital Signs Vitals Vital Signs Date Time Temp Pulse Resp B/P Pulse Ox O2 Delivery O2 Flow Rate FiO2 03/24/16 07:27 98.6 62 17 124/85 98 03/23/16 05:17 Nasal Cannula 1.0 Intake and Output 03/23/16 03/23/16 03/24/16 15:00 23:00 07:00 Intake Total 1100 ml 1400 ml Output Total 1300 ml 1000 ml Balance -200 ml 400 ml Exam Free Text/Dictation Dressing dry Incision clean, dry, and intact without redness or drainage 5/5 Tibialis Anterior, EHL, Gastroc Soleus, Peroneals Normal sensation Palpable DP/PT, CR < 2 Sec No distal edema Results Result Diagram: 03/24/16 0422 03/24/16 042 KAM DIGGS MD Mar 24, 2016 11:03
--- NOTE | 2016-03-25 01:39 | DS ---
DATE OF ADMISSION: 03/22/2016 DATE OF DISCHARGE: 03/24/2016 ADMITTING DIAGNOSIS: Right knee osteoarthritis. . DISCHARGE DIAGNOSIS: Status post right total knee arthroplasty. HOSPITAL COURSE: Patient was admitted, and taken to the operating room, where he underwent a right total knee arthroplasty. There were no complications. He tolerated the procedure well. He was renae en to the recovery room in stable condition. He was given routine perioperative intravenous antibio tics. Pain was controlled with oral pain medications. He was started on enteric-coated aspirin 325 mg twice daily for DVT prophylaxis. The drain was removed on postoperative day 1, and the incision was inspected and noted to be clean, dry, and intact with no redness or drainage. He did well with physical therapy, ambulating up and down the halls independently with a walker. By postoperative d ay 2, he was comfortable and ambulating independently, and able to go up and down stairs without dif ficulty. His pain was well controlled with oral pain medications, and he remained afebrile, hemodyn amically stable, and neurovascularly intact. I felt at this point, he was ready to be discharged to home. DISCHARGE CONDITION: Good. DISPOSITION: Home. DISCHARGE MEDICATIONS: 1. [place] (7.5/325) 1-2 tabs p.o. q.4-6h. p.r.n. moderate pain. 2. Tramadol 50 mg p.o. q.4-6h. p.r.n. mild pain. 3. He will continue with enteric-coated aspirin 325 mg twice daily for DVT prophylaxis. For the remainder of the medications, please refer to the medication reconciliation form. DISCHARGE INSTRUCTIONS: He should keep the incision dry. He will continue working on [id number] on exercises and continue with the walker for ambulatory support. He will be weightbearing as tessie ated on the right lower extremity. He will follow up with me in the office in 1 week, on 04/02/2016 . Dictated By: KAM MARIANO/BEHZAD Conf#: [id number] DID#: [id number]
== END 2016-03-24 13:05 | disposition home health service (06) | DRG 470 ==
LOC: REC 05:20 → MS1 12:23
PROVIDERS: ADMIT Orthopaedic Surgery; ATTEND Orthopaedic Surgery
PROC: 0SRC0J9 Replacement of Right Knee Joint with Synthetic Substitute, Cemented, Open Approach (ICD-10-PCS; principal; 2016-03-22 07:00)
DX: M17.11 Unilateral primary osteoarthritis, right knee (principal); I10 Essential (primary) hypertension; E78.5 Hyperlipidemia, unspecified; D64.9 Anemia, unspecified; Z79.82 Long term (current) use of aspirin
CPT/HCPCS: 73560; 80048; 81001; 81003; 85014; 85018; 86850; 86900; 86901; 86920; 87081; 87086; 88304; 88311; 97110; 97116; 97163; 97166; 97530; Z7610; C1776; C9290; J0131; J0171; J0330; J0690; J0697; J0735; J1100; J1885; J2250; J2274; J2405; J2710; J2765; J3010; J3370; J7120

== ENCOUNTER → 2016-04-02 | Outpatient (CLI) | payer OTHER ==
[~2016-04-02] MED LIST changes: -ASPI325T32 PO; -BUPIVACAINE LIPOSOME/PF 266 MG/20 ML VIAL INFIL SCH; -CEFAZOLIN 2GM/50 ML (PMX) 50 ML X1 BEFORE INCISION IVPB ONE; -CELECOXIB 400 MG PO X1 DOSE PO ONE; -CPM MC; -EXPAREL NOTE (BUPIVICAINE LIPOSOMAL) XX SCH; -HYDR-3025 PO; +HYDR-905 PO; +METO-448 PO; -METO25TA7 PO; +PANT40TA4 PO; -PREGABALIN 300 MG PO X1 PO ONE; -SOD CHLORIDE 0.9% IV ONE; -SOD CHLORIDE 0.9% IVPB SCH; -TRANEXAMIC ACID IV ONE; -TRANEXAMIC ACID IVPB SCH; +ULT50 PO; -oxyCODONE (CR) 10 MG TAB [oxyCONTIN] X1 DOSE PO ONE; -traMADOL 50 MG TAB X 1 DOSE PO ONE
--- NOTE | 2016-04-02 14:24 | RADRPT ---
PROCEDURE: Right knee radiographs. CLINICAL INDICATION: Right knee pain. Postop. TECHNIQUE: Two views. Frontal and lateral. COMPARISON: 03/22/2016. FINDINGS: There is no fracture or dislocation. The anterior surgical drain has been removed. There is a total right knee arthroplasty which appears satisfactory. There is no lytic or blastic lesion. There is a joint effusion. IMPRESSION: 1. Anterior surgical drain removed. 2. Joint effusion. 3. Total right knee arthroplasty. RPTAT: QQ .Dean House MD, MD Date Time Electronically viewed and signed by .Dean House MD, on 04/02/2016 14:24 .R/
--- NOTE | 2016-04-03 07:46 | HKNOTE ---
DATE OF SERVICE: 04/02/2016 INTERVAL HISTORY: The patient presents today for a followup on his right knee. He is now approximately 10 days status post right total knee arthroplasty. He is doing satisfactory overall. He has been having some mild pain in the right knee as well as the right ankle. He has a known history of osteoarthritis in the right ankle which has been flared up since the right knee surgery. He has been toe touch weightbearing with crutches as a result of his ankle pain. He denies any fevers, chills. Denies any erythema or warmth. He is having some swelling of the right knee, but denies any calf pain, swelling, or tenderness. He presents today for postoperative evaluation. PHYSICAL EXAMINATION: GENERAL: He is alert and oriented x4 and in no acute distress. He is toe touch weightbearing using crutches. EXTREMITIES: Exam of the right knee demonstrates mild soft tissue swelling. The incision is clean, dry, and well healing. There is some mild ecchymosis in the posterior aspect of the knee. Range of motion is somewhat limited, 0-90 degrees. Homans' sign is negative. Compartments are soft. He is neurovascularly intact distally. IMAGING: Two views of the right knee were obtained today and reviewed by me. They show good anatomic alignment. The tibial plate and femoral component are in good position with no evidence of hardware loosening. No fractures or dislocation seen. ASSESSMENT: Ten days status post right total knee arthroplasty. Doing satisfactorily, but somewhat limited range of motion. PLAN: The patient has not begun home physical therapy for unknown reasons at this point. I will go ahead and call home health today and make sure the therapist comes down and sees him immediately. His Prineo Dermabond was removed today and Steri-Strips were applied. He should continue taking his pain medication as prescribed. I encouraged the patient to ice his ankle as well as the front and the back of the knee. We will see the patient back in 1 week for a range of motion check with Dr. Brandt present in clinic. The patient demonstrates understanding. We will see him in 1 week's time. Dictated By: ROSALINDA WILKINS for KAM SERRATO/BEHZAD Conf#: [id number] DID#: [id number] [facility]
== END | disposition home or self-care (01) ==
LOC: HKI 13:05
PROVIDERS: ATTEND Orthopaedic Surgery
DX: Z47.1 Aftercare following joint replacement surgery (principal); Z96.651 Presence of right artificial knee joint
CPT/HCPCS: 73560; Z7500; G0463

== ENCOUNTER → 2016-04-11 | Outpatient (CLI) | payer OTHER ==
[~2016-04-11] MED LIST changes: +TRAM50TA2 PO; -ULT50 PO
== END | disposition home or self-care (01) ==
LOC: HKI 10:22
PROVIDERS: ATTEND Orthopaedic Surgery
DX: Z47.1 Aftercare following joint replacement surgery (principal); M17.11 Unilateral primary osteoarthritis, right knee; Z96.651 Presence of right artificial knee joint
CPT/HCPCS: G0463

== ENCOUNTER → 2016-05-09 | Outpatient (CLI) | payer OTHER | END | disposition home or self-care (01) | LOC: HKI 09:05 | PROVIDERS: ATTEND Orthopaedic Surgery | DX: Z47.1 Aftercare following joint replacement surgery (principal); M17.11 Unilateral primary osteoarthritis, right knee; Z96.651 Presence of right artificial knee joint ==

== ENCOUNTER → 2016-07-09 | Outpatient (CLI) | payer OTHER ==
--- NOTE | 2016-07-09 12:25 | RADRPT ---
PROCEDURE: XR right knee. CLINICAL INDICATION: Knee pain. TECHNIQUE: AP weightbearing, lateral weightbearing and sunrise views are available for review. COMPARISON: 04/02/2016 FINDINGS: There is a total knee replacement. There is no evidence of loosening of the prosthesis. There is no evidence of hardware failure. The osseous structures are normal in mineralization, architecture and alignment No acute fracture or dislocation is seen.No osseous lesions are identified. The soft tiss ues are unremarkable . IMPRESSION: Unremarkable total knee replacement. RPTAT: HGDB .Kamar Monk MD, MD Date Time Electronically viewed and signed by .Kamar Monk MD, MD on 07/09/2016 12:25 .B/
== END | disposition home or self-care (01) ==
LOC: HKI 08:45
PROVIDERS: ATTEND Orthopaedic Surgery
DX: Z09 Encounter for follow-up examination after completed treatment for conditions other than malignant neoplasm (principal); Z96.653 Presence of artificial knee joint, bilateral